=== PATIENT | male | born 2000 | race Two or more races ===

== ENCOUNTER 2024-12-22 21:10 | Emergency (ER) | payer MEDICAID ==
[2024-12-22] MEDS: diphenhydrAMINE 50 MG/ML SDV IVPUSH ONE (21:22)
[2024-12-22] MEDS: methylPREDNISolone Sodium Succinate 125 MG/2 ML SDV IVPUSH STA (21:23)
== END 2024-12-22 22:30 | disposition home or self-care (01) ==
LOC: CC.ED 21:10
DX: L50.0 Allergic urticaria (principal); Z79.899 Other long term (current) drug therapy
CPT/HCPCS: 96374; 96375; 99283; 99283-25; J1200; J2919